=== PATIENT | female | born 1945 | race Caucasian/White ===

== ENCOUNTER 2018-04-27 07:24 | Day surgery (SDC) | payer MEDICARE ==
[~2018-04-27] VITALS: Ht 170.2 cm; Wt 69.8 kg
[~2018-04-27 07:24] MED LIST: Aspirin EC81 MG; Diovan320 MG; HYDCHL25 PO; OMEPRAZOLE MAGN20 MG
--- NOTE | 2018-04-27 09:37 | NUR ---
04/27/18 0937 Tati Langston PT WITH DILITATION WITH THE BIG 60 SYRINGE AND THE EGD DENNY DILIATOR.
== END 2018-04-27 10:09 | disposition home or self-care (01) ==
LOC: ORSCSDS 07:24
PROVIDERS: Student in an Organized Health Care Education/Training Program
PROC: 0DB58ZX Excision of Esophagus, Via Natural or Artificial Opening Endoscopic, Diagnostic (ICD-10-PCS; principal; 2018-04-27 09:00)
PROC: 0D758ZZ Dilation of Esophagus, Via Natural or Artificial Opening Endoscopic (ICD-10-PCS; principal; 2018-04-27 09:00)
PROC: 0DB68ZX Excision of Stomach, Via Natural or Artificial Opening Endoscopic, Diagnostic (ICD-10-PCS; principal; 2018-04-27 09:00)
DX: K21.9 Gastro-esophageal reflux disease without esophagitis (principal); R13.10 Dysphagia, unspecified; K20.9 Esophagitis, unspecified; K31.7 Polyp of stomach and duodenum; K44.9 Diaphragmatic hernia without obstruction or gangrene; K22.2 Esophageal obstruction; K29.70 Gastritis, unspecified, without bleeding; I10 Essential (primary) hypertension; Z79.899 Other long term (current) drug therapy; Z79.82 Long term (current) use of aspirin
CPT/HCPCS: 88305; 88312; 88342; C1726; J7120

== ENCOUNTER 2018-07-27 06:37 | Day surgery (SDC) | payer MEDICARE ==
[~2018-07-27] VITALS: Ht 170.2 cm; Wt 72.1 kg
[~2018-07-27 06:37] MED LIST changes: -Aspirin EC81 MG; +Aspirin EC81 MG PO; +Coenzyme Q10200 M2 PO; +EPIPEN 2-P0.3 MG/0.3 IM; -OMEPRAZOLE MAGN20 MG; +OMEPRAZOLE MAGN20 MG PO; +VALSARTAN-HCTZ1 EAC3 PO; +VITAMIN D35000 UNIT PO
== END 2018-07-27 08:40 | disposition home or self-care (01) ==
LOC: ORSCSDS 06:37
PROVIDERS: Student in an Organized Health Care Education/Training Program
PROC: 0DB58ZX Excision of Esophagus, Via Natural or Artificial Opening Endoscopic, Diagnostic (ICD-10-PCS; principal; 2018-07-27 08:00)
DX: R13.10 Dysphagia, unspecified (principal); K44.9 Diaphragmatic hernia without obstruction or gangrene; K21.9 Gastro-esophageal reflux disease without esophagitis; R12 Heartburn; I10 Essential (primary) hypertension; K22.2 Esophageal obstruction; Z79.82 Long term (current) use of aspirin; Z79.899 Other long term (current) drug therapy
CPT/HCPCS: 88305; J1980; J2405; J2704; J7120